=== PATIENT | male | born 1985 | race African-American/Black ===

== ENCOUNTER 2017-04-21 18:53 | Emergency (ER) | payer OTHER ==
[~2017-04-21] VITALS: Ht 190.5 cm; Wt 81.6 kg
[2017-04-21 18:59] VITALS: BP 146/76
[2017-04-21] MEDS ORDERED: KETOROLAC TROMETH 60MG/2ML VIAL IM ONE (20:45)
[2017-04-21] MEDS ORDERED: HYDROcodone-ACET 5/325MG TAB PO ONE (21:30)
== END 2017-04-21 22:12 | disposition home or self-care (01) ==
LOC: ER 19:01
DX: S20.212A Contusion of left front wall of thorax, initial encounter (principal); X58.XXXA Exposure to other specified factors, initial encounter; Y93.89 Activity, other specified; Y92.89 Other specified places as the place of occurrence of the external cause; Y99.8 Other external cause status
CPT/HCPCS: 71101; 71250; 96372; 99284; J1885

== ENCOUNTER 2023-03-17 13:22 | Emergency (ER) | payer MEDICAID | END 2023-03-17 13:48 | disposition left against medical advice (07) | LOC: ER 13:22 | DX: M79.604 Pain in right leg (principal); Z53.21 Procedure and treatment not carried out due to patient leaving prior to being seen by health care provider ==

== ENCOUNTER 2024-05-03 06:10 | Emergency (ER) | payer MEDICAID ==
[~2024-05-03] VITALS: Ht 193 cm; Wt 84.1 kg
[2024-05-03 06:20] VITALS: BP 142/85; PULSE 105; RESP 18; TEMP 98.5; O2SAT 96
== END 2024-05-03 07:27 | disposition left against medical advice (07) ==
LOC: ER 06:10
DX: R06.02 Shortness of breath (principal); Z53.21 Procedure and treatment not carried out due to patient leaving prior to being seen by health care provider